=== PATIENT | female | born 1970 | race African-American/Black ===

== ENCOUNTER 2017-08-02 12:45 | Emergency (ER) | payer MEDICAID ==
[~2017-08-02] VITALS: Ht 175.3 cm; Wt 104.3 kg
[2017-08-02 12:50] VITALS: BP 158/75
--- NOTE | 2017-08-02 13:24 | NUR ---
C/O HIGH BLOOD PRESSURE x 2 DAYS. NAD NOTED. PT AAO X4, AMB WITH STEADY GAIT. RR EVEN AND UNLABORED. PENDING MD LOO.
== END 2017-08-02 13:42 | disposition home or self-care (01) ==
LOC: ER 12:47
DX: R03.0 Elevated blood-pressure reading, without diagnosis of hypertension (principal)
CPT/HCPCS: 99281; A4606; Z7610; Z7502